=== PATIENT | male | born 1995 | race Caucasian/White ===

== ENCOUNTER 2022-07-17 10:28 | Emergency (ER) | payer OTHER ==
[~2022-07-17] VITALS: Ht 165.1 cm; Wt 73.6 kg
[2022-07-17 10:34] VITALS: BP 134/79
[2022-07-17] MEDS ORDERED: ibuprofen tablet 400 MG TABLET PO ONE (11:15)
[2022-07-17] MEDS ORDERED: acetaminophen 325mg tablet PO ONE (11:15)
[2022-07-17] MEDS ORDERED: IBUP-1984 PO (11:17)
[2022-07-17] MEDS ORDERED: ACET-2615 PO (11:17)
== END 2022-07-17 11:46 | disposition home or self-care (01) ==
LOC: ER 10:29
DX: S39.012A Strain of muscle, fascia and tendon of lower back, initial encounter (principal); Z79.899 Other long term (current) drug therapy; X50.1XXA Overexertion from prolonged static or awkward postures, initial encounter; Y93.89 Activity, other specified; Y92.89 Other specified places as the place of occurrence of the external cause; Y99.8 Other external cause status
CPT/HCPCS: 99284